=== PATIENT | female | born 1995 | race Caucasian/White ===

== ENCOUNTER 2020-05-13 04:10 | Observation (INO) | payer BC, OTHER ==
[2020-05-13 04:28] LABS: MUDS CUTOFF CONCENTRATIONS CUTOFF CONC BELOW:
[2020-05-13 04:30] LABS: GLUCOSE, URINE (UA) NEGATIVE (NEGATIVE); KETONES,URINE (UA) >=80 mg/dL (NEGATIVE); LEUKOCYTE ESTERASE, URINE NEGATIVE (NEGATIVE); NITRITE,URINE NEGATIVE (NEGATIVE); OCCULT BLOOD,URINE NEGATIVE (NEGATIVE); PH,URINE 6.5 PH (5.0-7.5); PROTEIN,URINE 100 mg/dL (NEGATIVE); UROBILINOGEN,URINE 1 (NORMAL) E.U./dL (NORMAL)
[2020-05-13 04:32] LABS: BILIRUBIN,URINE NEGATIVE (NEGATIVE); CLARITY,URINE CLEAR (CLEAR); HCG UR QUAL NEGATIVE; ICTOTEST,URINE NEGATIVE
[2020-05-13 04:37] LABS: BACTERIA,URINE Few /HPF (None Seen); CASTS, URINE 3-5 Hyaline Casts /LPF; MUCUS,URINE Marked Strands; RBC,URINE 0-5 /HPF (0-5); SQUAMOUS EPITHELIAL CELL,UR MANY Squamous (<= Few)
[2020-05-13 04:40] LABS: AMPHETAMINE SCREEN,URINE NEGATIVE (NEGATIVE); BENZODIAZEPINES SCREEN, URINE NEGATIVE (NEGATIVE); COCAINE SCREEN URINE NEGATIVE (NEGATIVE); METHADONE SCREEN, URINE NEGATIVE (NEGATIVE); METHAMPHETAMINES SCREEN, URINE NEGATIVE (NEGATIVE); OPIATE SCREEN, URINE NEGATIVE (NEGATIVE); OXYCODONE SCREEN, URINE NEGATIVE (NEGATIVE); PROPOXYPHENE SCREEN, URINE NEGATIVE (NEGATIVE); TRICYCLIC ANTIDEPRESSANT,URINE NEGATIVE (NEGATIVE)
[2020-05-13] MEDS ORDERED: ONDANSETRON 4 MG/2 ML VIAL IVP STA ×2 (04:40→05:19)
[2020-05-13] MEDS ORDERED: SODIUM CHLORIDE 0.9% 1,000 ML IV STA (04:40)
[2020-05-13 04:49] LABS: BASOPHILS # (AUTO) 0.1 10^3/uL (0.0-0.1); BASOPHILS % (AUTO) 0.2 %; HGB - HEMOGLOBIN 14.7 g/dL (12.0-16.0); LYMPHOCYTES # (AUTO) 0.9 10^3/uL (1.5-3.5); LYMPHOCYTES % (AUTO) 4.4 %; MEAN CORPUSCULAR HEMOGLOBIN 29.6 pg (27.0-31.0); MEAN CORPUSCULAR HGB CONC 33.7 g/dL (32.0-36.0); MEAN CORPUSCULAR VOLUME 87.7 fL (81.0-99.0); MEAN PLATELET VOLUME 9.9 fL (7.9-10.8); MONOCYTES # (AUTO) 0.6 10^3/uL (0.0-1.0); MONOCYTES % (AUTO) 2.8 %; NEUTROPHILS # (AUTO) 19.4 10^3/uL (1.5-6.6); NEUTROPHILS % (AUTO) 92.2 %; PLT - PLATELET COUNT 379 10^3/uL (130-450); RED BLOOD COUNT 4.97 10^6/uL (4.20-5.40); RED CELL DISTRIBUTION WIDTH 12.2 % (12.0-15.0); WHITE BLOOD COUNT 21.1 x10^3/uL (4.8-10.8)
[2020-05-13 05:03] LABS: ALBUMIN 4.7 g/dL (3.2-5.5); ALBUMIN/GLOBULIN RATIO 1.6 (1.0-2.2); BILIRUBIN,TOTAL 1.5 mg/dL (0.2-1.0); CALCIUM 9.9 mg/dL (8.5-10.3); CREATININE 0.9 mg/dL (0.4-1.0); TOTAL PROTEIN 7.7 g/dL (6.7-8.2)
[2020-05-13] MEDS ORDERED: POTASSIUM CHLORIDE 20 MEQ IV STA (05:19)
[2020-05-13] MEDS ORDERED: MORPHINE 10 MG/ML VIAL IVP STA (05:21)
[2020-05-13] MEDS ORDERED: NS W/20 MEQ KCL 1,000 ML IV STA (05:21)
--- NOTE | 2020-05-13 05:33 | ED Physician Documentation ---
PD HPI ABD PAIN - Stated complaint Stated Complaint: ABD HX - Chief complaint Chief Complaint: Abd Pain - History obtained from History obtained from: Patient - Additional information Additional information: 25-year-old woman with No reported past medical history, not currently on medications, strong family history of diabetes, presents with gradual onset periumbilical abdominal pain radiating diffusely to the entire abdomen, constant, aching, starting a few hours prior to arrival and now a 10 out of 10, associated with nonbloody nonbilious nausea and vomiting. Patient states that she has been feeling confused and was concerned that someone had drugged her. She was reassured after Nursing told her that her urine drug screen was negative. She denies any recreational drug use or alcohol. Does endorse 10 pound weight loss over the past 2 weeks, anorexia, increased urination. Denies fevers, diarrhea, chest pain shortness of breath edema rash. Review of Systems Ten Systems: 10 systems reviewed and negative Constitutional: reports: Myalgias, Fatigue, Weight Loss. denies: Fever, Chills Respiratory: reports: Dyspnea GI: reports: Abdominal Pain, Nausea, Vomiting. denies: Diarrhea : reports: Frequency. 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 : None HEENT: None Psych: Anxiety Musculoskeletal: None Derm: Eczema - Past Surgical History Past Surgical History: No - Present Medications Home Medications: Ambulatory Orders Medication Instructions Recorded Confirmed No Known Home Medications 05/13/20 05/13/20 - Allergies Allergies/Adverse Reactions: Allergies Allergy/AdvReac Type Severity Reaction Status Date / Time No Known Drug Allergies Allergy Verified 05/13/20 04:20 - Social History Does the pt smoke?: No Smoking Status: Never smoker Does the pt drink ETOH?: Yes Does the pt have substance abuse?: No - POLST Patient has POLST: No PD ED PE NORMAL - Vitals Vital signs reviewed: Yes - General General: Alert and oriented X 3, No acute distress, Other (Anxious appearing, thin.) - HEENT HEENT: Atraumatic, PERRL, EOMI, Pharynx benign, Other (Dry mucous membranes) - Neck Neck: Supple, no meningeal sign - Cardiac Cardiac: RRR - Respiratory Respiratory: No respiratory distress, Clear bilaterally - Abdomen Abdomen: Other (Diffusely tender to palpation) - Female Female : Deferred - Rectal Rectal: Deferred - Back Back: No CVA TTP - Derm Derm: Normal color - Extremities Extremities: No deformity - Neuro Neuro: Alert and oriented X 3 - Psych Psych: Other (Anxious mood and affect.) Results - Vitals Vitals: Vital Signs - 24 hr 05/13/20 05/13/20 04:18 05:00 Temperature 36.2 C L Heart Rate 67 76 Respiratory 16 18 Rate Blood Pressure 102/63 112/72 O2 Saturation 99 100 Oxygen O2 Source Room air - Labs Labs: Laboratory Tests 05/13/20 05/13/20 05/13/20 04:18 04:35 04:35 WBC 21.1 H RBC 4.97 Hgb 14.7 Hct 43.6 MCV 87.7 MCH 29.6 MCHC 33.7 RDW 12.2 Plt Count 379 MPV 9.9 Neut # (Auto) 19.4 H Lymph # (Auto) 0.9 L [place] # (Auto) 0.6 Eos # (Auto) 0.0 Baso # (Auto) 0.1 Absolute Nucleated RBC 0.00 Nucleated RBC % 0.0 VBG pH VBG pCO2 VBG pO2 VBG HCO3 VBG Total CO2 VBG O2 Saturation VBG Base Excess Sodium 138 Potassium 3.7 Chloride 96 L Carbon Dioxide 19 L Anion Gap 23.0 H BUN 7 Creatinine 0.9 Estimated GFR (MDRD) 75 L Glucose 222 H Lactic Acid Calcium 9.9 Total Bilirubin 1.5 H AST 19 ALT 16 Alkaline Phosphatase 36 L Total Protein 7.7 Albumin 4.7 Globulin 3.0 Albumin/Globulin Ratio 1.6 Lipase 24 Urine Color DARK YELLOW Urine Clarity CLEAR Urine pH 6.5 Ur Specific [place] >=1.030 H Urine Protein 100 H Urine Glucose (UA) NEGATIVE Urine Ketones >=80 H Urine Occult Blood NEGATIVE Urine Nitrite NEGATIVE Urine Bilirubin NEGATIVE Urine Urobilinogen 1 (NORMAL) Ur Leukocyte Esterase NEGATIVE Urine RBC 0-5 Urine WBC 0-3 Ur Squamous Epith Cells MANY Squamous H Urine Bacteria Few Urine Casts 3-5 Hyaline Casts Urine Mucus Marked Strands Ur Microscopic Review INDICATED Urine Culture Comments NOT INDICATED Urine HCG, Qual NEGATIVE Nasal Adenovirus (PCR) Nasal B. parapertussis DNA (PCR) Nasal Coronavir 229E PCR Nasal Coronavir HKU1 PCR Nasal Coronavir NL63 PCR Nasal Coronavir OC43 PCR Nasal Enterovir/Rhinovir PCR Nasal Influenza B PCR Nasal Influenza A PCR Nasal Parainfluen 1 PCR Nasal Parainfluen 2 PCR Nasal Parainfluen 3 PCR Nasal Parainfluen 4 PCR Nasal RSV (PCR) Nasal B.pertussis DNA PCR Nasal C.pneumoniae (PCR) [place] Metapneumo PCR Nasal M.pneumoniae (PCR) Nasal SARS-CoV-2 (PCR) Salicylates Urine Opiates Screen NEGATIVE Ur Oxycodone Screen NEGATIVE Urine Methadone Screen NEGATIVE Ur Propoxyphene Screen NEGATIVE Acetaminophen Ur Barbiturates Screen NEGATIVE Ur Tricyclics Screen NEGATIVE Ur Phencyclidine Scrn NEGATIVE Ur Amphetamine Screen NEGATIVE U Methamphetamines Scrn NEGATIVE U Benzodiazepines Scrn NEGATIVE Urine Cocaine Screen NEGATIVE U Cannabinoids Screen NEGATIVE Ethyl Alcohol Serum Ketones 05/13/20 05/13/20 05/13/20 04:35 04:35 05:25 WBC RBC Hgb Hct MCV MCH MCHC RDW Plt Count MPV Neut # (Auto) Lymph # (Auto) [place] # (Auto) Eos # (Auto) Baso # (Auto) Absolute Nucleated RBC Nucleated RBC % VBG pH 7.459 H VBG pCO2 27.9 L VBG pO2 26.8 VBG HCO3 19.4 L VBG Total CO2 20.2 L VBG O2 Saturation 60.2 VBG Base Excess -3.0 L Sodium Potassium Chloride Carbon Dioxide Anion Gap BUN Creatinine Estimated GFR (MDRD) Glucose Lactic Acid Calcium Total Bilirubin AST ALT Alkaline Phosphatase Total Protein Albumin Globulin Albumin/Globulin Ratio Lipase Urine Color Urine Clarity Urine pH Ur Specific [place] Urine Protein Urine Glucose (UA) Urine Ketones Urine Occult Blood Urine Nitrite Urine Bilirubin Urine Urobilinogen Ur Leukocyte Esterase Urine RBC Urine WBC Ur Squamous Epith Cells Urine Bacteria Urine Casts Urine Mucus Ur Microscopic Review Urine Culture Comments Urine HCG, Qual Nasal Adenovirus (PCR) Nasal B. parapertussis DNA (PCR) Nasal Coronavir 229E PCR Nasal Coronavir HKU1 PCR Nasal Coronavir NL63 PCR Nasal Coronavir OC43 PCR Nasal Enterovir/Rhinovir PCR Nasal Influenza B PCR Nasal Influenza A PCR Nasal Parainfluen 1 PCR Nasal Parainfluen 2 PCR Nasal Parainfluen 3 PCR Nasal Parainfluen 4 PCR Nasal RSV (PCR) Nasal B.pertussis DNA PCR Nasal C.pneumoniae (PCR) [place] Metapneumo PCR Nasal M.pneumoniae (PCR) Nasal SARS-CoV-2 (PCR) Salicylates < 6.0 Urine Opiates Screen Ur Oxycodone Screen Urine Methadone Screen Ur Propoxyphene Screen Acetaminophen < 10 L Ur Barbiturates Screen Ur Tricyclics Screen Ur Phencyclidine Scrn Ur Amphetamine Screen U Methamphetamines Scrn U Benzodiazepines Scrn Urine Cocaine Screen U Cannabinoids Screen Ethyl Alcohol < 5.0 Serum Ketones SMALL H 05/13/20 05/13/20 05:31 06:26 WBC RBC Hgb Hct MCV MCH MCHC RDW Plt Count MPV Neut # (Auto) Lymph # (Auto) [place] # (Auto) Eos # (Auto) Baso # (Auto) Absolute Nucleated RBC Nucleated RBC % VBG pH VBG pCO2 VBG pO2 VBG HCO3 VBG Total CO2 VBG O2 Saturation VBG Base Excess Sodium Potassium Chloride Carbon Dioxide Anion Gap BUN Creatinine Estimated GFR (MDRD) Glucose Lactic Acid 2.3 H Calcium Total Bilirubin AST ALT Alkaline Phosphatase Total Protein Albumin Globulin Albumin/Globulin Ratio Lipase Urine Color Urine Clarity Urine pH Ur Specific [place] Urine Protein Urine Glucose (UA) Urine Ketones Urine Occult Blood Urine Nitrite Urine Bilirubin Urine Urobilinogen Ur Leukocyte Esterase Urine RBC Urine WBC Ur Squamous Epith Cells Urine Bacteria Urine Casts Urine Mucus Ur Microscopic Review Urine Culture Comments Urine HCG, Qual Nasal Adenovirus (PCR) NOT DETECTED Nasal B. parapertussis DNA (PCR) NOT DETECTED Nasal Coronavir 229E PCR NOT DETECTED Nasal Coronavir HKU1 PCR NOT DETECTED Nasal Coronavir NL63 PCR NOT DETECTED Nasal Coronavir OC43 PCR NOT DETECTED Nasal Enterovir/Rhinovir PCR NOT DETECTED Nasal Influenza B PCR NOT DETECTED Nasal Influenza A PCR NOT DETECTED Nasal Parainfluen 1 PCR NOT DETECTED Nasal Parainfluen 2 PCR NOT DETECTED Nasal Parainfluen 3 PCR NOT DETECTED Nasal Parainfluen 4 PCR NOT DETECTED Nasal RSV (PCR) NOT DETECTED Nasal B.pertussis DNA PCR NOT DETECTED Nasal C.pneumoniae (PCR) NOT DETECTED [place] Metapneumo PCR NOT DETECTED Nasal M.pneumoniae (PCR) NOT DETECTED Nasal SARS-CoV-2 (PCR) NOT DETECTED Salicylates Urine Opiates Screen Ur Oxycodone Screen Urine Methadone Screen Ur Propoxyphene Screen Acetaminophen Ur Barbiturates Screen Ur Tricyclics Screen Ur Phencyclidine Scrn Ur Amphetamine Screen U Methamphetamines Scrn U Benzodiazepines Scrn Urine Cocaine Screen U Cannabinoids Screen Ethyl Alcohol Serum Ketones PD MEDICAL DECISION MAKING - ED course ED course: d/w patient's mother Anette ([phone]) who states patient has no prior mental health history but has been acting depressed the past week or so and "has been fasting". She is concerned this is the cause of her daughter's symptoms. Patient feeling better. endorsed to Dr. Shearer for further management. d/w Dr. Sullivan, night time hospitalist who states she will likely be placed in observation. patient amenable to stay. Departure - Departure Clinical Impression: Nausea and vomiting, Hyperglycemia, Polyuria, Polydipsia
[2020-05-13] MEDS ORDERED: IOVERSOL 320 100 ML VIAL IVP ONE ×2 (05:34→06:29)
[2020-05-13 05:41] LABS: VBG PCO2 27.9 mmHg (41-51); VBG PH 7.459 (7.31-7.41); VBG PO2 26.8 mmHg (25-47); VBG TOTAL CO2 20.2 mmol/L (24-29)
[2020-05-13 06:11] LABS: ACETAMINOPHEN < 10 ug/mL (10-30); SALICYLATE < 6.0 mg/dL
[2020-05-13 06:26] LABS: C. PNEUMONIAE- RESP PCR PANEL NOT DETECTED
--- NOTE | 2020-05-13 07:15 | ED Physician Documentation ---
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 HEENT: None Psych: Anxiety Musculoskeletal: None Derm: Eczema - Past Surgical History Past Surgical History: No - Present Medications Home Medications: Ambulatory Orders Medication Instructions Recorded Confirmed No Known Home Medications 05/13/20 05/13/20 - Allergies Allergies/Adverse Reactions: Allergies Allergy/AdvReac Type Severity Reaction Status Date / Time No Known Drug Allergies Allergy Verified 05/13/20 04:20 - Social History Does the pt smoke?: No Smoking Status: Never smoker Does the pt drink ETOH?: Yes Does the pt have substance abuse?: No - POLST Patient has POLST: No Results - Vitals Vitals: Vital Signs - 24 hr 05/13/20 05/13/20 04:18 05:00 Temperature 36.2 C L Heart Rate 67 76 Respiratory 16 18 Rate Blood Pressure 102/63 112/72 O2 Saturation 99 100 Oxygen O2 Source Room air - Labs Labs: Laboratory Tests 05/13/20 05/13/20 05/13/20 04:18 04:35 04:35 WBC 21.1 H RBC 4.97 Hgb 14.7 Hct 43.6 MCV 87.7 MCH 29.6 MCHC 33.7 RDW 12.2 Plt Count 379 MPV 9.9 Neut # (Auto) 19.4 H Lymph # (Auto) 0.[address] [place] # (Auto) 0.6 Eos # (Auto) 0.0 Baso # (Auto) 0.1 Absolute Nucleated RBC 0.00 Nucleated RBC % 0.0 VBG pH VBG pCO2 VBG pO2 VBG HCO3 VBG Total CO2 VBG O2 Saturation VBG Base Excess Sodium 138 Potassium 3.7 Chloride 96 L Carbon Dioxide 19 L Anion Gap 23.0 H BUN 7 Creatinine 0.9 Estimated GFR (MDRD) 75 L Glucose 222 H Lactic Acid Calcium 9.9 Total Bilirubin 1.5 H AST 19 ALT 16 Alkaline Phosphatase 36 L Total Protein 7.7 Albumin 4.7 Globulin 3.0 Albumin/Globulin Ratio 1.6 Lipase 24 Urine Color DARK YELLOW Urine Clarity CLEAR Urine pH 6.5 Ur Specific [place] >=1.030 H Urine Protein 100 H Urine Glucose (UA) NEGATIVE Urine Ketones >=80 H Urine Occult Blood NEGATIVE Urine Nitrite NEGATIVE Urine Bilirubin NEGATIVE Urine Urobilinogen 1 (NORMAL) Ur Leukocyte Esterase NEGATIVE Urine RBC 0-5 Urine WBC 0-3 Ur Squamous Epith Cells MANY Squamous H Urine Bacteria Few Urine Casts 3-5 Hyaline Casts Urine Mucus Marked Strands Ur Microscopic Review INDICATED Urine Culture Comments NOT INDICATED Urine HCG, Qual NEGATIVE Nasal Adenovirus (PCR) Nasal B. parapertussis DNA (PCR) Nasal Coronavir 229E PCR Nasal Coronavir HKU1 PCR Nasal Coronavir NL63 PCR Nasal Coronavir OC43 PCR Nasal Enterovir/Rhinovir PCR Nasal Influenza B PCR Nasal Influenza A PCR Nasal Parainfluen 1 PCR Nasal Parainfluen 2 PCR Nasal Parainfluen 3 PCR Nasal Parainfluen 4 PCR Nasal RSV (PCR) Nasal B.pertussis DNA PCR Nasal C.pneumoniae (PCR) [place] Metapneumo PCR Nasal M.pneumoniae (PCR) Nasal SARS-CoV-2 (PCR) Salicylates Urine Opiates Screen NEGATIVE Ur Oxycodone Screen NEGATIVE Urine Methadone Screen NEGATIVE Ur Propoxyphene Screen NEGATIVE Acetaminophen Ur Barbiturates Screen NEGATIVE Ur Tricyclics Screen NEGATIVE Ur Phencyclidine Scrn NEGATIVE Ur Amphetamine Screen NEGATIVE U Methamphetamines Scrn NEGATIVE U Benzodiazepines Scrn NEGATIVE Urine Cocaine Screen NEGATIVE U Cannabinoids Screen NEGATIVE Ethyl Alcohol Serum Ketones 05/13/20 05/13/20 05/13/20 04:35 04:35 05:25 WBC RBC Hgb Hct MCV MCH MCHC RDW Plt Count MPV Neut # (Auto) Lymph # (Auto) [place] # (Auto) Eos # (Auto) Baso # (Auto) Absolute Nucleated RBC Nucleated RBC % VBG pH 7.459 H VBG pCO2 27.9 L VBG pO2 26.8 VBG HCO3 19.4 L VBG Total CO2 20.2 L VBG O2 Saturation 60.2 VBG Base Excess -3.0 L Sodium Potassium Chloride Carbon Dioxide Anion Gap BUN Creatinine Estimated GFR (MDRD) Glucose Lactic Acid Calcium Total Bilirubin AST ALT Alkaline Phosphatase Total Protein Albumin Globulin Albumin/Globulin Ratio Lipase Urine Color Urine Clarity Urine pH Ur Specific [place] Urine Protein Urine Glucose (UA) Urine Ketones Urine Occult Blood Urine Nitrite Urine Bilirubin Urine Urobilinogen Ur Leukocyte Esterase Urine RBC Urine WBC Ur Squamous Epith Cells Urine Bacteria Urine Casts Urine Mucus Ur Microscopic Review Urine Culture Comments Urine HCG, Qual Nasal Adenovirus (PCR) Nasal B. parapertussis DNA (PCR) Nasal Coronavir 229E PCR Nasal Coronavir HKU1 PCR Nasal Coronavir NL63 PCR Nasal Coronavir OC43 PCR Nasal Enterovir/Rhinovir PCR Nasal Influenza B PCR Nasal Influenza A PCR Nasal Parainfluen 1 PCR Nasal Parainfluen 2 PCR Nasal Parainfluen 3 PCR Nasal Parainfluen 4 PCR Nasal RSV (PCR) Nasal B.pertussis DNA PCR Nasal C.pneumoniae (PCR) [place] Metapneumo PCR Nasal M.pneumoniae (PCR) Nasal SARS-CoV-2 (PCR) Salicylates < 6.0 Urine Opiates Screen Ur Oxycodone Screen Urine Methadone Screen Ur Propoxyphene Screen Acetaminophen < 10 L Ur Barbiturates Screen Ur Tricyclics Screen Ur Phencyclidine Scrn Ur Amphetamine Screen U Methamphetamines Scrn U Benzodiazepines Scrn Urine Cocaine Screen U Cannabinoids Screen Ethyl Alcohol < 5.0 Serum Ketones SMALL H 05/13/20 05/13/20 05:31 06:26 WBC RBC Hgb Hct MCV MCH MCHC RDW Plt Count MPV Neut # (Auto) Lymph # (Auto) [place] # (Auto) Eos # (Auto) Baso # (Auto) Absolute Nucleated RBC Nucleated RBC % VBG pH VBG pCO2 VBG pO2 VBG HCO3 VBG Total CO2 VBG O2 Saturation VBG Base Excess Sodium Potassium Chloride Carbon Dioxide Anion Gap BUN Creatinine Estimated GFR (MDRD) Glucose Lactic Acid 2.3 H Calcium Total Bilirubin AST ALT Alkaline Phosphatase Total Protein Albumin Globulin Albumin/Globulin Ratio Lipase Urine Color Urine Clarity Urine pH Ur Specific [place] Urine Protein Urine Glucose (UA) Urine Ketones Urine Occult Blood Urine Nitrite Urine Bilirubin Urine Urobilinogen Ur Leukocyte Esterase Urine RBC Urine WBC Ur Squamous Epith Cells Urine Bacteria Urine Casts Urine Mucus Ur Microscopic Review Urine Culture Comments Urine HCG, Qual Nasal Adenovirus (PCR) NOT DETECTED Nasal B. parapertussis DNA (PCR) NOT DETECTED Nasal Coronavir 229E PCR NOT DETECTED Nasal Coronavir HKU1 PCR NOT DETECTED Nasal Coronavir NL63 PCR NOT DETECTED Nasal Coronavir OC43 PCR NOT DETECTED Nasal Enterovir/Rhinovir PCR NOT DETECTED Nasal Influenza B PCR NOT DETECTED Nasal Influenza A PCR NOT DETECTED Nasal Parainfluen 1 PCR NOT DETECTED Nasal Parainfluen 2 PCR NOT DETECTED Nasal Parainfluen 3 PCR NOT DETECTED Nasal Parainfluen 4 PCR NOT DETECTED Nasal RSV (PCR) NOT DETECTED Nasal B.pertussis DNA PCR NOT DETECTED Nasal C.pneumoniae (PCR) NOT DETECTED [place] Metapneumo PCR NOT DETECTED Nasal M.pneumoniae (PCR) NOT DETECTED Nasal SARS-CoV-2 (PCR) NOT DETECTED Salicylates Urine Opiates Screen Ur Oxycodone Screen Urine Methadone Screen Ur Propoxyphene Screen Acetaminophen Ur Barbiturates Screen Ur Tricyclics Screen Ur Phencyclidine Scrn Ur Amphetamine Screen U Methamphetamines Scrn U Benzodiazepines Scrn Urine Cocaine Screen U Cannabinoids Screen Ethyl Alcohol Serum Ketones PD MEDICAL DECISION MAKING - ED course Complexity details: reviewed results, re-evaluated patient, considered differential, d/w patient, d/w speech correction consultant ED course: 25-year-old female signed out to me by the previous physician. CT scan is without any significant acute abnormalities. Does have a hydropic gallbladder, but no physical or clinical signs of cholecystitis. Given IV fluids. Appears significantly dehydrated. Will place in observation for further care. Discussed with the hospitalist. This document was made in part using voice recognition software. While efforts are made to proofread this document, sound alike and grammatical errors may occur. Departure - Departure Disposition: ED Place in Observation Clinical Impression: Ketosis, Dehydration, Hyperglycemia Vomiting Qualifiers: Vomiting type: unspecified Vomiting Intractability: non-intractable Nausea presence: with nausea Qualified Code(s): R11.2 - Nausea with vomiting, unspecified Condition: Stable
[2020-05-13] MEDS ORDERED: SODIUM CHLORIDE FLUSH 0.9% 10 ML SYRINGE IVP PRN (07:28)
--- NOTE | 2020-05-13 07:40 | CT Report ---
PROCEDURE: HEAD WO INDICATIONS: ams TECHNIQUE: Noncontrast 4.5 mm thick angled axial sections acquired from the foramen magnum to the vertex. For r adiation dose reduction, the following was used: automated exposure control, adjustment of mA and/or kV according to patient size. COMPARISON: None. FINDINGS: Image quality: The vertex of the skull was not included in the [id number]. CSF spaces: Basal cisterns are patent. No extra-axial fluid collections. Ventricles are normal in size and shape. Brain: No midline shift. No intracranial masses or hemorrhage. Sloan-white matter interface is norm al. Skull and face: Calvarium and visualized facial bones are intact, without suspicious lesions. Sinuses: Visualized sinuses and mastoids are clear. IMPRESSION: No acute intracranial abnormality. Agree with preliminary report. Reviewed by: James Temple DO on 05/13/2020 6:39 AM [facility] Approved by: James Temple DO on 05/13/2020 6:39 AM [facility] Station ID: [id number]
--- NOTE | 2020-05-13 07:49 | CT Report ---
PROCEDURE: Abdomen/Pelvis W INDICATIONS: RLQ pain CONTRAST: IV CONTRAST: Optiray 320 ml: 100 PO CONTRAST: *NO PO CONTRAST TECHNIQUE: After the administration of nonionic contrast, 5 mm thick sections acquired from the diaphragms to th e symphysis. 5 mm thick coronal and sagittal reformats were acquired. For radiation dose reduction, the following was used: automated exposure control, adjustment of mA and/or kV according to patient size. COMPARISON: None. FINDINGS: Image quality: Excellent. ABDOMEN: Lung bases: Lung bases are clear. Heart size is normal. Solid organs: The liver demonstrates mild periportal edema. Geographic region of hypodensity adjacent to the falciform ligament likely represents focal fatty infiltration. The spleen demonstrates a subc entimeter hypodensity likely representing a small cyst. The gallbladder measures slightly greater chris n 10 cm in length. Biliary system is non dilated. Pancreas enhances normally. No adrenal nodules. Kidneys demonstrate normal size and enhancement, without hydronephrosis. Peritoneum and bowel: Bowel loops demonstrate normal wall thickness and caliber. No free fluid or a ir. Normal appendix. Nodes and vessels: No retroperitoneal or mesenteric adenopathy by size criteria. Aorta and inferior vena cava are normal in size. Miscellaneous: No ventral hernias. PELVIS: Genitourinary: Bladder wall thickness is normal. Unremarkable uterus and ovaries for patient's age. Miscellaneous: No inguinal hernias or adenopathy. Bones: No suspicious bony lesions. No vertebral body compression fractures. IMPRESSION: Hydropic gallbladder. Mild periportal edema which is nonspecific and may be seen in the setting of rapid hydration. This ho wever may suggest inflammatory or infectious process in the correct clinical setting. Recommend clini kalyani correlation. No significant discrepancy from preliminary report. Reviewed by: James Temple DO on 05/13/2020 6:48 AM [facility] Approved by: James Temple DO on 05/13/2020 6:48 AM [facility] Station ID: [id number]
[2020-05-13] MEDS: SODIUM CHLORIDE 0.9% 1,000 ML IV SCH ×3 (09:38→22:44)
[2020-05-13] MEDS: ENOXAPARIN 40 MG/0.4 ML SYRINGE SUBQ SCH (09:38)
[2020-05-13] MEDS: SODIUM CHLORIDE FLUSH 0.9% 10 ML SYRINGE IVP SCH ×2 (09:41→16:25)
[2020-05-13] MEDS: ONDANSETRON 4 MG/2 ML VIAL IVP PRN ×2 (10:01→16:25)
--- NOTE | 2020-05-13 11:06 | HISTORY & PHYSICAL EXAMINATION ---
Chief Complaint - Chief Complaint Chief Complaint: abdominal pain, n/v History of Present Illness - Admitted From Admitted From:: home - History Obtained From Records Reviewed: no records in [facility] History obtained from: patient Exam Limitations: Pt is a vague and poor historian, not allowing info to come to or from mom - History of Present Illness HPI Comment/Other: 25 year old female with no previous medical history and not on any current medications presented to the ED with abdominal pain, n/v, polydipsia and polyu yair. Per the ED note the pain was 10/10 with gradual onset and radiating diffuselty to the entire abdomen, aching. On my exam she denies radiation, rates it as 8/10 and describes as sharp. Minimizing movement and sleeping help to make it better and stress and movement make it worse. She notes that she "has not slept in over a week" due to a "traumatizing event" but was unwilling to elaborate. She is a vague historian and difficult to elicit details from. She is reporting n/v with nonbilious nonbloody emesis and associated poor appetite and intake. Unable to state what she has been eating recently other than 2 bananas yesterday that she immediately threw up. Reports that her diet over the last 6 months has "not been good" but unable to describe. Denies anorexia, weight loss and deliberately not eating, though ED note indicates Pt reported a 10 pound weight loss over the past 2 weeks and mother reported Pt has been fasting recently. She reported a 1 week history of polydipsia and polyuria, dizziness and possible changes in taste (she is covid negative). She is unsure of family hx of diabetes other than her mother is "prediabetic" and her uncle "may have" diabetes. ED note indicates strong family history of diabetes. On admission her glucose is 222, WBC 21.1, ketones in the urine, and she was found to have a metabolic acidosis thought 2/2 hyperventilation due to anxiety. Regarding her diet, she alternately reports a weight loss (10 pounds reported to the ED) and denying a weight loss. She also reports she is not sure for how long but she "frequently" fasts, "maybe for 2 or 3 days and this time just might have been too long." Believes she may be drank "too much sugar water, but not on purpose" at her parents' house. "It tasted weird." Reports history of suicidal ideation with no suicide attempts. When asked if she is feeling safe, she reports "I don't know". When asked if she feels like she should hurt herself or others she reports "maybe". Unwilling to elaborate. Reported to nursing a past history of attempts to hurt herself, but was unwilling to elaborate during my interview. Denies having a plan. Has not been diagnosed with depression, anxiety or psychiatric illness but self-reports anxiety and "possible" depression. Per ED note Pt's mother reported Pt had been acting depressed over the last week. On further examination, Pt's affect is labile and alternates between flat, happy, and paranoid. Alternating between making eye contact and wandering gaze around the room in a paranoid fashion. She reports believing that "something is happening" at her parents' house but unable to describe,also mentioned she believes she is being poisoned by her mom. Believes she was "hypnotized" by friends a year and a half ago and this may be why she has not slept in a week, but then states she does not think she was really hypnotized. Stated that her "brain feels like part of it is gone" and "I wish you had scanned my brain before all of this happened", also that "my memories just feel hollow, does that make sense?" Also asking "do you believe me?" when describing these feelings. Describes trying to "work out sentences in my head to help my friend" but then states that her memory issues have caused her to forget what she was going to say to her friend. She is being admitted for observation for concern of euglycemic diabetic ket oacidosis vs starvation ketosis vs unspecified hyperglycemia. She will additionally need a telepsych consult for her schizoaffective signs. History - Past Medical History Cardiovascular: reports: None Respiratory: reports: None Neuro: reports: None Endocrine/Autoimmune: reports: None GI: reports: None GRIP: reports: None : reports: None HEENT: reports: None Psych: reports: Anxiety Musculoskeletal: reports: None Derm: reports: Eczema MRSA Hx?: No - Family & Social History Family History Comment/Other: Pt vague with this history, believes mother is "prediabetic" and mother's brother is diabetic. Living arrangement: At home Living Situation: With family Social History Notes: Has been living with her parents for 9 months, is not currently working. Never smoker. Past remote hx of using cocaine, unable to state how much or when. Denies use of meth or heroin. Past hx of marijuana, unable to state when last used or quantify. Past hx of alcohol use, last drink 3 months ago, again unable to quantify how much she was drinking. Reveals her diet has been "off" for the last 6 months, frequently not eating but denies anorexia. SW notes indicate mother reported patient was fasting frequently. - POLST Patient has POLST: No Meds/Allgy - Home Medications Home Medications: Ambulatory Orders Medication Instructions Recorded Confirmed No Known Home Medications 05/13/20 05/13/20 - Allergies Allergies/Adverse Reactions: Allergies Allergy/AdvReac Type Severity Reaction Status Date / Time No Known Drug Allergies Allergy Verified 05/13/20 04:20 Review of Systems - Constitutional Constitutional: reports: Poor appetite - Eyes Eyes: denies: Pain, Blurred vision, Vision loss - Ears, Nose & Throat Ears, Nose & Throat: denies: Ear pain, Nasal discharge, Sore throat, Hoarseness - Cardiovascular Cariovascular: reports: Lightheadedness. denies: Irregular heart rate, Palpitations, Chest pain, Edema, Syncope, Exertional dyspnea - Respiratory Respiratory: denies: Cough, Wheezing, Hemoptysis, SOB at rest, SOB with exertion - Gastrointestinal Gastrointestinal: reports: Abdominal pain, Constipation (last BM 2 days ago, and last prior to that was 1 week prior), Nausea, Vomiting, Poor appetite. denies: Abdominal distention, Diarrhea, Bloody stools, Bile emesis, [place] blood emesis, Coffee grounds emesis, Reflux/heartburn - Genitourinary Genitourinary: denies: Dysuria, Frequency, Incontinence, Flank pain, Nocturia - Musculoskeletal Musculoskeletal: denies: Muscle pain, Back pain, Muscle aches, Stiffness, Limited range of motion - Integumentary Integumentary: denies: Rash, Lesions - Neurological Neurological: reports: Dizziness. denies: General weakness - Psychiatric Psychiatric: reports: Depression ("maybe"), Anxiety, Suicidal ("maybe" feels like she should hurt herself, does not have a plan; hx of hurting herself per her report to nursing) - Endocrine Endocrine: reports: Polyuria, Polydypsia. denies: Polyphagia - Hematologic/Lymphatic Hematologic/Lymphatic: denies: Anemia, Bruising - All Other Systems All Other Systems: reports: Reviewed and negative Prior Level of Functionality: independent with ADLs, driving, does not use DME Exam - Vital Signs Reviewed Vital Signs: Yes Vital Signs: Vital Signs x48h Temp Pulse Pulse Resp BP BP Pulse Ox 05/13/20 09:35 37.9 C 73 16 117/74 100 05/13/20 07:00 79 18 112/73 99 05/13/20 05:00 76 18 112/72 100 05/13/20 04:18 36.2 C L 67 16 102/63 99 - Physical Exam General Appearance: positive: Alert, Mild distress Eyes Bilateral: positive: Normal inspection, PERRL, EOMI, No lid inflammation, Conjunctivae nml, No scleral icterus ENT: positive: ENT inspection nml, Dry mucous membranes Neck: positive: Nml inspection Respiratory: positive: Chest non-tender, No respiratory distress, Breath sounds nml Cardiovascular: positive: Regular rate & rhythm, No murmur, No gallop Peripheral Pulses: positive: 2+ Abdomen: positive: No organomegaly, Nml bowel sounds, Tenderness (to light and deep palpation, R>L). negative: Guarding, Rebound, Hepatomegaly, Splenomegaly Skin: positive: Pallor, Other (facial scabs scattered on cheek and forehead) Extremities: positive: Non-tender, Full ROM, Nml appearance, No pedal edema Neurologic/Psychiatric: positive: Oriented x3, Other (affect quickly transitions from flat to paranoid to happy, labile; delusional and paranoid) Sepsis Event Note (H) - Evaluation Current Stage of Sepsis: Ruled out Conclusion/Plan - Problem List (1) Abdominal pain Conclusion/Plan: Reporting generalized sharp abdominal pain, described as aching in the ED. 8/10, diffuse but non radiating. Movement and stress make it worse, not moving and sleep make it better. Her abdomen is slightly firm but not distended. No organomegaly. She reports her last BM was 2 days ago (she "thinks"), and the BM prior that was a week prior. She could not describe the stool. She is unsure why she is constipated. She has been fasting for unclear reasons and unclear lengths of time, per her report "maybe 2-3 days" and per report to ED possibly as long as 10 days. She is not malnourished as her albumin is >4. She is not diabetic as her A1C is 4.9. She denies food poisoning as she has not eaten much recently. Her CT abdomen and pelvis is negative for all but a hydropic gallbladder and she is not having signs of cholecystitis other than pain to palpation and elevated WBC 21. Lipase is normal and pancreas was normal on CT so this is not pancreatitis. She is admitted for further observation and closer monitoring of the pain and n/v. 1. Monitor pain 2. CMP/CBC 3. CT scan (revealed hydropic gallbladder) Qualifiers: Abdominal location: generalized Qualified Code(s): R10.84 - Generalized abdominal pain (2) Nausea and vomiting Conclusion/Plan: Reports n/v of unclear duration but believes it started 2 days ago. Reports emesis after eating 2 bananas, "undigested food". No bloody emesis. The nausea comes and goes but is not intractable and does respond to PRN antiemetics. Her BUN and creatinine are normal but mucus membranes are dry and she is likely dehydrated from the n/v. 1. PRN antiemetics 2. IVF 3. Encourage oral intake Qualifiers: Vomiting type: unspecified Vomiting Intractability: non-intractable Qualified Code(s): R11.2 - Nausea with vomiting, unspecified (3) Hyperglycemia Conclusion/Plan: BG on admission was 222 and there are ketones in her urine. She was given IVF but no insulin,and on recheck after 6 hours her BG was 106. A1C is 4.9. She has a family history of diabetes and has been complaining of n/v, abdominal pain, polyuria and polydipsia. Her mother reports she has been fasting and not eating this week, though Pt reports she ate 2 bananas yesterday and threw them up. She does reports she believes she drank "sugar water" at home because the water tasted "weird". Given the ketones and reports of prolonged fasting, this may be starvation ketosis. (4) Ketosis Conclusion/Plan: Found to have >80 ketones in her urine. Reports intermittent fasting at home, sometimes for 2-3 days but may have been fasting for much longer this last week. She denies intentionally trying to lose weight or change her diet and albumin is >4 so she is not malnourished. Differential at admission included starvation ketosis and euglycemic diabetic ketoacidosis, both of which are rare, however euglycemic DKA was ruled out with her normal A1C. 1. Monitor I/Os 2. IVF 3. CMP, replace electrolytes as needed (5) Polydipsia Conclusion/Plan: Reports polydipsia at home. A1C drawn in context of also having polyuria and hyperglycemia with ketones in the urine on admission, was normal at 4.9. (6) Polyuria Conclusion/Plan: ROS positive for polyuria. Hyperglycemia noted on admission labs, Hgb A1C 4.9- she does not have diabetes. 1. Monitor I/O (7) Dehydration Conclusion/Plan: Related to n/v. Reported not recently drinking or eating, but also reported polydipsia and drinking water that didn't taste right at her parents. BUN and creatinine are appropriate but she appeared to have dry mucus membranes. IVF infusing and she is drinking coffee and juice in her room. 1. Daily CMP 2. Encourage oral intake (8) Schizoaffective disorder Conclusion/Plan: No prior mental health diagnosis. Has appeared to be paranoid with delusions during my interviews with her. Believes "part of my brain is gone", "I feel high" (tox screen negative and last reported substance use was months ago", her "memories are hollow", she has been "hypnotized", and her parents may have put sugar in her water to cause hyperglycemia because it didn't taste right. "Do you believe me? Maybe you don't have enough information." Alternates between making eye contact and then having her gaze wander around the room in paranoid fashion. Labile affect, will be appearing ready to cry then move to smiling to smirking to flat affect. Reports her friends asked if they could hypnotize her a year and a half ago and this may be why she is having difficulty. Also reports that she has not slept in a week. When asked why, she alludes to a "traumatizing" event that occurred at home but she is unable to elucidate and vaguely starts talking about being hypnotized. Reported to nursing a hx of attempting to hurt herself in the past, did not want to discuss with me. When asked if she is having thoughts of harming herself now, she says "maybe" but she denies having a plan. 1. Safety checks by nursing 2. Social Work consult 3. Telepsych consult Qualifiers: Schizoaffective disorder type: unspecified Qualified Code(s): F25.9 - Schizoaffective disorder, unspecified - Lab Results Lab results reviewed: Yes Fish Bones: 05/13/20 04:35 05/13/20 12:00 - Diagnostic Imaging Results Diagnostic Imaging Results: positive: Final report reviewed - EKG Results EKG Interpreted Independently: Yes Core Measures - Anticipated LOS I expect patient to be DC'd or transferred within 96 hours.: Yes - DVT/VTE - Prophylaxis VTE/DVT Device ordered at admit?: Yes
[2020-05-13 12:51] LABS: HEMOGLOBIN A1c% 4.9 % (4.27-6.07)
[2020-05-13 13:02] LABS: CALCIUM 8.9 mg/dL (8.5-10.3); CREATININE 0.6 mg/dL (0.4-1.0); MAGNESIUM 1.9 mg/dL (1.7-2.8)
[2020-05-13] MEDS: ACETAMINOPHEN 325 MG TABLET PO PRN (16:25)
[2020-05-14] MEDS: SODIUM CHLORIDE FLUSH 0.9% 10 ML SYRINGE IVP SCH ×3 (00:13→16:06)
[2020-05-14] MEDS: SODIUM CHLORIDE 0.9% 1,000 ML IV SCH ×3 (05:21→18:44)
[2020-05-14 05:42] LABS: BASOPHILS % (AUTO) 0.2 %; EOSINOPHILS % (AUTO) 0.3 %; HGB - HEMOGLOBIN 12.6 g/dL (12.0-16.0); LYMPHOCYTES # (AUTO) 1.7 10^3/uL (1.5-3.5); LYMPHOCYTES % (AUTO) 13.2 %; MEAN CORPUSCULAR HEMOGLOBIN 29.8 pg (27.0-31.0); MEAN CORPUSCULAR HGB CONC 33.5 g/dL (32.0-36.0); MEAN CORPUSCULAR VOLUME 88.9 fL (81.0-99.0); MEAN PLATELET VOLUME 9.6 fL (7.9-10.8); MONOCYTES # (AUTO) 1.3 10^3/uL (0.0-1.0); MONOCYTES % (AUTO) 9.7 %; NEUTROPHILS # (AUTO) 10.1 10^3/uL (1.5-6.6); NEUTROPHILS % (AUTO) 76.3 %; PLT - PLATELET COUNT 254 10^3/uL (130-450); RED BLOOD COUNT 4.23 10^6/uL (4.20-5.40); RED CELL DISTRIBUTION WIDTH 12.5 % (12.0-15.0); WHITE BLOOD COUNT 13.2 x10^3/uL (4.8-10.8)
[2020-05-14 05:55] LABS: BUN - BLOOD UREA NITROGEN < 5 mg/dL (6-20); CALCIUM 8.3 mg/dL (8.5-10.3); CARBON DIOXIDE - CO2 23 mmol/L (21-32); CHLORIDE 104 mmol/L (101-111); CREATININE 0.5 mg/dL (0.4-1.0); GLUCOSE 107 mg/dL (70-100); MAGNESIUM 1.8 mg/dL (1.7-2.8)
[2020-05-14] MEDS ORDERED: POTASSIUM CHLORIDE 20 MEQ TABLET PO ONE (07:15)
[2020-05-14] MEDS: POTASSIUM CHLOR 10 MEQ/100 ML 10 MEQ/100 ML BAG IV SCH ×4 (07:58→13:36)
[2020-05-14] MEDS: ENOXAPARIN 40 MG/0.4 ML SYRINGE SUBQ SCH (09:12)
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
--- NOTE | 2020-05-14 10:55 | PHARMACY PROGRESS NOTE ---
- Best Possible Medication History Admit Date and Time: 05/13/20 0728 Processed by: Pharmacy Medication History completed: Yes Patient Interview: Pt interview ONLY source (Interviewed by Briana 05/14, only medication clobetasol cream per pt.) As the person ultimately responsible for medication therapy, providers are able to order a medication from an existing home medication list in [facility] via the "Reconcile Routine" prior to Confirmation of that medication by operations support analyst. Such practice is discouraged except when the physician, in their clinical judgment, deems that a medical need exists for a medication without regard to previous use.
[2020-05-15] MEDS: SODIUM CHLORIDE FLUSH 0.9% 10 ML SYRINGE IVP SCH ×3 (00:30→09:51)
[2020-05-15 05:17] LABS: BASOPHILS % (AUTO) 0.3 %; EOSINOPHILS # (AUTO) 0.1 10^3/uL (0.0-0.7); EOSINOPHILS % (AUTO) 0.8 %; HGB - HEMOGLOBIN 13.3 g/dL (12.0-16.0); LYMPHOCYTES # (AUTO) 1.7 10^3/uL (1.5-3.5); LYMPHOCYTES % (AUTO) 12.7 %; MEAN CORPUSCULAR HEMOGLOBIN 29.8 pg (27.0-31.0); MEAN CORPUSCULAR HGB CONC 34.1 g/dL (32.0-36.0); MEAN CORPUSCULAR VOLUME 87.4 fL (81.0-99.0); MEAN PLATELET VOLUME 9.9 fL (7.9-10.8); MONOCYTES % (AUTO) 7.7 %; NEUTROPHILS # (AUTO) 10.5 10^3/uL (1.5-6.6); NEUTROPHILS % (AUTO) 78.2 %; PLT - PLATELET COUNT 257 10^3/uL (130-450); RED BLOOD COUNT 4.46 10^6/uL (4.20-5.40); RED CELL DISTRIBUTION WIDTH 12.4 % (12.0-15.0); WHITE BLOOD COUNT 13.4 x10^3/uL (4.8-10.8)
[2020-05-15 05:32] LABS: BUN - BLOOD UREA NITROGEN < 5 mg/dL (6-20); CALCIUM 8.5 mg/dL (8.5-10.3); CARBON DIOXIDE - CO2 26 mmol/L (21-32); CHLORIDE 102 mmol/L (101-111); CREATININE 0.4 mg/dL (0.4-1.0); GLUCOSE 107 mg/dL (70-100)
[2020-05-15] MEDS ORDERED: POTASSIUM CHLORIDE 20 MEQ TABLET PO ONE ×2 (06:57→20:45)
[2020-05-15] MEDS: ENOXAPARIN 40 MG/0.4 ML SYRINGE SUBQ SCH (08:02)
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
[2020-05-15] MEDS ORDERED: SODIUM CHLORIDE 0.9% 500 ML IV ONE (09:13)
[2020-05-15] MEDS: CHOLECALCIFEROL 25 MCG TABLET PO SCH (09:27)
[2020-05-15] MEDS: MULTIVITAMIN W/MINERALS TABLET PO SCH (09:28)
[2020-05-15] MEDS ORDERED: ALPRAZolam 0.25 MG TABLET PO ONE (12:54)
[2020-05-15] MEDS: SODIUM CHLORIDE 0.9% 1,000 ML IV SCH ×2 (13:42→20:36)
[2020-05-15 14:17] LABS: BILIRUBIN,URINE NEGATIVE (NEGATIVE); GLUCOSE, URINE (UA) NEGATIVE (NEGATIVE); KETONES,URINE (UA) TRACE mg/dL (NEGATIVE); LEUKOCYTE ESTERASE, URINE TRACE (NEGATIVE); NITRITE,URINE NEGATIVE (NEGATIVE); OCCULT BLOOD,URINE NEGATIVE (NEGATIVE); PH,URINE 6.5 PH (5.0-7.5); PROTEIN,URINE NEGATIVE (NEGATIVE); UROBILINOGEN,URINE 1 (NORMAL) E.U./dL (NORMAL)
[2020-05-15 14:19] LABS: CLARITY,URINE HAZY (CLEAR)
[2020-05-16] MEDS: SODIUM CHLORIDE FLUSH 0.9% 10 ML SYRINGE IVP SCH ×2 (03:30→12:10)
[2020-05-16 04:41] LABS: BASOPHILS % (AUTO) 0.3 %; EOSINOPHILS # (AUTO) 0.3 10^3/uL (0.0-0.7); EOSINOPHILS % (AUTO) 1.7 %; HGB - HEMOGLOBIN 12.3 g/dL (12.0-16.0); LYMPHOCYTES # (AUTO) 1.4 10^3/uL (1.5-3.5); LYMPHOCYTES % (AUTO) 9.4 %; MEAN CORPUSCULAR HEMOGLOBIN 29.9 pg (27.0-31.0); MEAN CORPUSCULAR HGB CONC 33.4 g/dL (32.0-36.0); MEAN CORPUSCULAR VOLUME 89.5 fL (81.0-99.0); MONOCYTES # (AUTO) 1.3 10^3/uL (0.0-1.0); MONOCYTES % (AUTO) 8.4 %; NEUTROPHILS # (AUTO) 11.9 10^3/uL (1.5-6.6); NEUTROPHILS % (AUTO) 79.8 %; PLT - PLATELET COUNT 264 10^3/uL (130-450); RED BLOOD COUNT 4.11 10^6/uL (4.20-5.40); RED CELL DISTRIBUTION WIDTH 12.4 % (12.0-15.0)
[2020-05-16 04:42] LABS: BUN - BLOOD UREA NITROGEN < 5 mg/dL (6-20); CALCIUM 8.2 mg/dL (8.5-10.3); CARBON DIOXIDE - CO2 24 mmol/L (21-32); CHLORIDE 106 mmol/L (101-111); CREATININE 0.5 mg/dL (0.4-1.0); GLUCOSE 127 mg/dL (70-100); MAGNESIUM 1.8 mg/dL (1.7-2.8); PHOSPHORUS 1.5 mg/dL (2.5-4.6)
[2020-05-16] MEDS: SODIUM CHLORIDE 0.9% 1,000 ML IV SCH ×3 (05:12→13:39)
[2020-05-16] MEDS: ACETAMINOPHEN 325 MG TABLET PO PRN (05:20)
[2020-05-16] MEDS ORDERED: POTASSIUM PHOSPHATE 21 MMOL in SODIUM CHLORIDE 0.9% 250 ML IV ONE (05:53)
[2020-05-16] MEDS ORDERED: SODIUM CHLORIDE 0.9% 250 ML IV ONE (06:28)
[2020-05-16] MEDS: ENOXAPARIN 40 MG/0.4 ML SYRINGE SUBQ SCH (08:01)
[2020-05-16] MEDS: MULTIVITAMIN W/MINERALS TABLET PO SCH (08:01)
[2020-05-16] MEDS: CHOLECALCIFEROL 25 MCG TABLET PO SCH (08:01)
[2020-05-16] MEDS ORDERED: ALPRAZolam 0.25 MG TABLET PO ONE (15:55)
--- NOTE | 2020-05-16 16:40 | DISCHARGE SUMMARY ---
Discharge Summary Admit Date: 05/13/20 Discharge Date: 05/16/20 Discharging Provider: Marlene Bowser ACNP Code Status: Attempt Resuscitation Condition at Discharge: Stable Discharge Disposition: 65 Psych Hosp/Unit DC/Xfer [facility] DIAGNOSES Admission Diagnoses: 1)Abdominal Pain 2) Nausea and Vomiting (self reported) 3) Hyperglycemia (blood glucose 222 on admit) 4) ketosis 5) Polydipsia/polyuria (self reported) 6) Intravascular volume depletion 7) Schizoaffective disorder 8) leukocytosis; mild Discharge Diagnoses with Status of Each Condition: 1)Unspecified Psychosis; transfer to inpatient psychiatry 2) Intravascular volume depletion due to reported fasting ; improved w/ volume resuscitation IV 3) sinus tachycardia 05/15/2009; (and orthostasis) resolved with further volume resuscitation, may have had some response to a 0.125 mg alprazolam dose 4) Abdominal Pain; intermittant/ varying location, no signficant finding on abdominal CT, tolerating PO, no NV during hospitalization, unremarkable exam 5) Nausea and Vomiting (self reported); none during hospitalization 6) Hyperglycemia (blood glucose 222 on admit); resolved w/ IV volume A1C 4.9, FBG 127, one random glucose 173 (? if related to cortisol response w/ pschiatric stress), FSBG 81, 100 at 8a, 11a respectively 05/16/20 7) ketosis; (+ urine ketones on admit) resolved, most c/w starvation ketosis, venous gas ph 7.4 8) Polydipsia/polyuria (self reported); none witnessed here, no corresponding hypo or hypernatremia to suggest SiadH or DI, 9) leukocytosis 21K>>13>>15 with no findings c/w infection; can be manifestation of acute mental health stress; - HPI History of Present Illness: 25 year old female with no previous medical history and not on any current medications presented to the ED with abdominal pain, n/v, polydipsia and polyuria. Per the ED note the pain was 10/10 with gradual onset and radiating diffuselty to the entire abdomen, aching. On my exam she denies radiation, rates it as 8/10 and describes as sharp. Minimizing movement and sleeping help to make it better and stress and movement make it worse. She notes that she "has not slept in over a week" due to a "traumatizing event" but was unwilling to elaborate. She is a vague historian and difficult to elicit details from. She is reporting n/v with nonbilious nonbloody emesis and associated poor appetite and intake. Unable to state what she has been eating recently other th an 2 bananas yesterday that she immediately threw up. Reports that her diet over the last 6 months has "not been good" but unable to describe. Denies anorexia, weight loss and deliberately not eating, though ED note indicates Pt reported a 10 pound weight loss over the past 2 weeks and mother reported Pt has been fasting recently. She reported a 1 week history of polydipsia and polyuria, dizziness and possible changes in taste (she is covid negative). She is unsure of family hx of diabetes other than her mother is "prediabetic" and her uncle "may have" diabetes. ED note indicates strong family history of diabetes. On admission her glucose is 222, WBC 21.1, ketones in the urine, and she was found to have a metabolic acidosis thought 2/2 hyperventilation due to anxiety. Regarding her diet, she alternately reports a weight loss (10 pounds reported to the ED) and denying a weight loss. She also reports she is not sure for how long but she "frequently" fasts, "maybe for 2 or 3 days and this time just might have been too long." Believes she may be drank "too much sugar water, but not on purpose" at her parents' house. "It tasted weird." Reports history of suicidal ideation with no suicide attempts. When asked if she is feeling safe, she reports "I don't know". When asked if she feels like she should hurt herself or others she reports "maybe". Unwilling to elaborate. Reported to nursing a past history of attempts to hurt herself, but was unwilling to elaborate during my interview. Denies having a plan. Has not been diagnosed with depression, anxiety or psychiatric illness but self-reports anxiety and "possible" depression. Per ED note Pt's mother reported Pt had been acting depressed over the last week. On further examination, Pt's affect is labile and alternates between flat, happy, and paranoid. Alternating between making eye contact and wandering gaze around the room in a paranoid fashion. She reports believing that "something is happening" at her parents' house but unable to describe,also mentioned she believes she is being poisoned by her mom. Believes she was "hypnotized" by friends a year and a half ago and this may be why she has not slept in a week, but then states she does not think she was really hypnotized. Stated that her "brain feels like part of it is gone" and "I wish you had scanned my brain before all of this happened", also that "my memories just feel hollow, does that make sense?" Also asking "do you believe me?" when describing these feelings. Describes trying to "work out sentences in my head to help my friend" but then states that her memory issues have caused her to forget what she was going to say to her friend. She is being admitted for observation for concern of euglycemic diabetic ketoacidosis vs starvation ketosis vs unspecified hyperglycemia. She will additionally need a telepsych consult for her schizoaffective signs. - CONSULTS | PROCEDURES Consultations: acute crisis response consult (mental health), patient declined telepsych Procedures: none - HOSPITAL COURSE Hospital Course: #) acute psychosis; unspecified per HPI, pt presented w/ complaints of abdominal symptoms which varied in her description to different providers. NO acute findings on imaging (abdominal CT), or exam. Tolerated oral intake during admission, with unremarkable abdominal exam. Neg urine HCG in ED (Initial leudocytosis most c/w volume contraction and improved to 13K-15 K w/ hydration, no bands. In absence of other causes of leukocytosis, may be related to prolonged and acute psychiatric stress. As per HPI, patient somewhat evasive in responses to history questions, some paranoid responses, / psychiatric overtones to presenting symptoms. After volume depletion was addressed we were able to obtain consult by crisis response service . During and after the interview, patient acutely decompensated , exhibiting more paranoia and delusional statements and calling 911. Refused telepsych consult to help direct medical management with antipsychotic. (She acknowledged considerable relief after a 0.125 mg alprazolam at hs 05/15 and received a single dose 05/16 after crisis response interview, in hopes she would agree to / a telepsych consult. Mother is a licensed therapist and ideally patient would be sent home on antipsychotic, but without a telepsych consult and with patients responding to suggestion of a telepsych consult to help direct us by calling 911, Karolina, crisis response counselor advised/ made plans for transfer to inpatient psych involuntary . Patient accepted at [facility] for involuntary admission (Note patient received (1) 0.125 mg alprazolam ~ 4:30p. 2) Intravascular volume depletion/Dehydraion Urine SG 1.030 on presentation, no concommitant JUAN related to fasting/ anorexia due to acute psychosis Resolved w/ IV volume repletion. #) sinus tachycardia /; resolved clinically nontoxic, afebrile, rate to 130-150 Resolved w/ bolus and additional IVF (which patient was intially suspicious of) EKG sinus tach, sl Biatrial enlargement , but no other significant finding BNP 11 Likely r/t admit volume depletion (noted as dehydration); do not suspect DI; no hypernatremia, polydipsia does not persist tho was admit complaint After 500cc fluid bolus improved but persists w/ HR to 150s when upright Urine SG has improved w/ IVF , normal SG urine Na 140 (denies taking diuretic) TSH normal 1.0 continuing NS at 150/ hr, the 125 / hr (and HR , BP improving; continue overnight, ) (#) Nausea and vomiting/ reported polydipsia/polyuria tolerated oral intake/ no NV during hospitalization No polyuria/polydipisa noted during hospitalization No lab abnormalities or exam c/w either SIADH, DI, DM (#) Hyperglycemia Glucose 222 on admit, not DKA, mild urine ketosis on admit most c/w starvation ketosis, venous pH normal, anion gap resolved w/ IVF, PO intake A1C 4.9, POC blood glucoses well controlled w/ isolated increase to 170, possibly related to chornic stress / cortisol no acute needs, reevaluate after acute psychiatric illness Likely will need antipsychotic agent, if possible use agent without corresponding sideeffect of hyperglycemia # Hypokalemia, Hypophosphatemia due to fasting/ reduced PO intake before admit repleted PO, will discharge w/ 20 mg daily ~ 5 days, and neutrophos bid x 5 days Taking PO so should be self limited - ALLERGIES Allergies/Adverse Reactions: Allergies Allergy/AdvReac Type Severity Reaction Status Date / Time No Known Drug Allergies Allergy Verified 05/13/20 04:20 - MEDICATIONS Home Medications: Ambulatory Orders Medication Instructions Recorded Confirmed Clobetasol 0.05% Oint [Temovate 1 inch TOP PRN PRN 05/14/20 05/14/20 0.05% Oint] Home Medications Other | Comments: Potassium chloride 20 meq PO daily x 5 days Neutraphos 1 packet daily x 5 days - PHYSICAL EXAM AT DISCHARGE General Appearance: positive: Alert, Other (was cooperative earlier, since eval, anxious, calling 911, ) Eyes Bilateral: positive: PERRL (pupils 3-4 mm, ), EOMI ENT: positive: ENT inspection nml Neck: positive: Nml inspection Respiratory: positive: Chest non-tender, No respiratory distress, Breath sounds nml. negative: Wheezes Cardiovascular: positive: Regular rate & rhythm, No murmur, Other (most recent VS 16:07 37.2, HR 84, 114/71, RR 16 95-100% RA) Abdomen: positive: Nml bowel sounds, No distention, Tenderness (with palpation, migratory c/o pain (left today 10, Right 2/), no RBT, no mass), Other (tolerating PO intake) Skin: positive: Warm, Dry, Pallor (mild general pallor). negative: Diaphoresis Extremities: positive: Non-tender. negative: Pedal edema Neurologic/Psychiatric: positive: Oriented x3, Other (oriented to person,place and time but increasingly anxious paranoid during/after Crisis Response Team eval). negative: Mood/affect nml - LABS Result Diagrams: 05/16/20 04:25 05/16/20 04:25 - DIAGNOSTIC IMAGING Diagnostic Imaging Results: Final report reviewed Diagnostic Imaging Results Comments: CT abdomen and Pelvis: Hydropic gallbladder, Mild periportal edema / nonspecific, may be seen in setting of rapid hydration (no other findings suggestive of biliary abnormality, or other acute intraabdominal process) - SEPSIS Current Stage of Sepsis: Ruled out - TIME SPENT Time Spent in Discharge (Minutes): 60 (over 1 hr spent evaluating pt , discussing psych consult, inpatient psych, managing escalating anxiety, coordinating d/c with mental health)
[2020-05-16] MEDS ORDERED: ALPRAZolam 0.25 MG TABLET PO PRN (19:53)
[2020-05-16 20:41] VITALS: BP 121/75
== END 2020-05-16 22:00 ==
LOC: ED 04:10 → MS2 07:28 → EEVIPCON 07:28
PROVIDERS: ADMIT Internal Medicine; ATTEND Nurse Practitioner
DX: F23 Brief psychotic disorder (principal); E87.2 Acidosis; R73.9 Hyperglycemia, unspecified; E86.0 Dehydration; R63.0 Anorexia; Z68.1 Body mass index [BMI] 19.9 or less, adult; R00.0 Tachycardia, unspecified; E88.89 Other specified metabolic disorders; E87.6 Hypokalemia; E83.39 Other disorders of phosphorus metabolism; R10.9 Unspecified abdominal pain; D72.829 Elevated white blood cell count, unspecified; Z20.822 Contact with and (suspected) exposure to COVID-19
CPT/HCPCS: 0202U; 36415; 70450; 74177; 80048; 80053; 80306; 80307; 80320; 80329; 81001; 81003; 81025; 82009; 82306; 82803; 83036; 83605; 83690; 83735; 83880; 84100; 84300; 84443; 85025; 93005; 96365; 96366; 96372; 96375; 96376; 99284; 99285; A9270; G0378; J1650; Q9967; 83930; 87086

== ENCOUNTER 2023-04-10 17:04 | Outpatient (CLI) | payer BC | END 2023-04-10 23:59 | disposition critical access hospital (66) | LOC: EMS 17:04 | DX: Z04.6 Encounter for general psychiatric examination, requested by authority (principal); R44.1 Visual hallucinations; R41.0 Disorientation, unspecified; R45.1 Restlessness and agitation; Z78.1 Physical restraint status | CPT/HCPCS: A0425; A0429 ==

== ENCOUNTER 2023-04-10 17:50 | Emergency (ER) | payer BC ==
--- NOTE | 2023-04-10 17:56 | ED Physician Documentation ---
PD HPI MHE - Stated complaint Stated Complaint: MONIE - History obtained from History obtained from: EMS - Additional information Additional information: She has a history of schizoaffective disorder and has been off of her medications. She is brought into the emergency department by EMS on an MONIE from the [facility] for grave disability. No history is available from the patient because of very tangential speech. PD PAST MEDICAL HISTORY - Past Medical History Cardiovascular: None Respiratory: None Neuro: None Endocrine/Autoimmune: None GI: None FILM COMPOSER: None : None HEENT: None Psych: Anxiety Musculoskeletal: None Derm: Eczema - Past Surgical History Past Surgical History: No - Present Medications Home Medications: Ambulatory Orders Medication Instructions Recorded Confirmed Clobetasol 0.05% Oint [Temovate 1 inch TOP PRN PRN 05/14/20 05/14/20 0.05% Oint] - Allergies Allergies/Adverse Reactions: Allergies Allergy/AdvReac Type Severity Reaction Status Date / Time No Known Drug Allergies Allergy Verified 05/13/20 04:20 - Social History Does the pt smoke?: No Smoking Status: Never smoker Does the pt drink ETOH?: Yes Does the pt have substance abuse?: No - POLST Patient has POLST: No PD ED PE NORMAL - Vitals Vital signs reviewed: Yes - General General: Other (Very tangential speech to the point of being unable to take any specific history.) - HEENT HEENT: PERRL - Neck Neck: Supple, no meningeal sign - Cardiac Cardiac: RRR, No murmur - Respiratory Respiratory: No respiratory distress, Clear bilaterally - Abdomen Abdomen: Non tender - Derm Derm: Normal color, Warm and dry - Extremities Extremities: No edema, No calf tenderness / cord - Neuro Eye Opening: Spontaneous Results - Vitals Vitals: Vital Signs - 24 hr 04/10/23 17:56 Temperature 36.4 C L Heart Rate 84 Respiratory 15 Rate Blood Pressure 117/76 O2 Saturation 100 Oxygen O2 Source Room air - Labs Labs: Laboratory Tests 04/10/23 04/10/23 04/10/23 18:04 18:10 18:10 WBC 5.1 RBC 5.06 Hgb 14.5 Hct 43.1 MCV 85.2 MCH 28.7 MCHC 33.6 RDW 12.5 Plt Count 296 MPV 9.6 Neut # (Auto) 2.8 Lymph # (Auto) 1.7 Bowman # (Auto) 0.5 Eos # (Auto) 0.1 Baso # (Auto) 0.0 Absolute Nucleated RBC 0.00 Nucleated RBC % 0.0 Sodium 136 Potassium 3.9 Chloride 103 Carbon Dioxide 23 Anion Gap 10.0 BUN 7 Creatinine 0.7 Estimated GFR (MDRD) 98 Glucose 81 Calcium 9.4 Magnesium 1.8 Total Bilirubin 1.0 AST 15 ALT 16 Alkaline Phosphatase 37 L Total Creatine Kinase 46 Total Protein 7.3 Albumin 4.6 Globulin 2.7 Albumin/Globulin Ratio 1.7 Lipase 16 TSH 1.09 Serum HCG, Qual Urine Color Urine Clarity Urine pH Ur Specific [place] Urine Protein Urine Glucose (UA) Urine Ketones Urine Occult Blood Urine Nitrite Urine Bilirubin Urine Urobilinogen Ur Leukocyte Esterase Ur Microscopic Review Urine Culture Comments Salicylates < 1.5 Urine Opiates Screen Ur Buprenorphine Scrn Ur Oxycodone Screen Urine Methadone Screen Acetaminophen 0.2 Ur Barbiturates Screen Ur Tricyclics Screen Ur Phencyclidine Scrn Ur Amphetamine Screen U Methamphetamines Scrn U Benzodiazepines Scrn Urine Cocaine Screen U Cannabinoids Screen Ur Drug Screen Comment Ethyl Alcohol < 10.0 SARS-CoV-2 (PCR) NOT DETECTED 04/10/23 04/10/23 18:10 18:26 WBC RBC Hgb Hct MCV MCH MCHC RDW Plt Count MPV Neut # (Auto) Lymph # (Auto) Bowman # (Auto) Eos # (Auto) Baso # (Auto) Absolute Nucleated RBC Nucleated RBC % Sodium Potassium Chloride Carbon Dioxide Anion Gap BUN Creatinine Estimated GFR (MDRD) Glucose Calcium Magnesium Total Bilirubin AST ALT Alkaline Phosphatase Total Creatine Kinase Total Protein Albumin Globulin Albumin/Globulin Ratio Lipase TSH Serum HCG, Qual NEGATIVE Urine Color YELLOW Urine Clarity CLEAR Urine pH 6.5 Ur Specific [place] 1.010 Urine Protein NEGATIVE Urine Glucose (UA) NEGATIVE Urine Ketones 40 H Urine Occult Blood NEGATIVE Urine Nitrite NEGATIVE Urine Bilirubin NEGATIVE Urine Urobilinogen 0.2 (NORMAL) Ur Leukocyte Esterase NEGATIVE Ur Microscopic Review NOT INDICATED Urine Culture Comments NOT INDICATED Salicylates Urine Opiates Screen NEGATIVE Ur Buprenorphine Scrn NEGATIVE Ur Oxycodone Screen NEGATIVE Urine Methadone Screen NEGATIVE Acetaminophen Ur Barbiturates Screen NEGATIVE Ur Tricyclics Screen NEGATIVE Ur Phencyclidine Scrn NEGATIVE Ur Amphetamine Screen NEGATIVE U Methamphetamines Scrn NEGATIVE U Benzodiazepines Scrn NEGATIVE Urine Cocaine Screen NEGATIVE U Cannabinoids Screen NEGATIVE Ur Drug Screen Comment CUTOFF CONC BELOW: Ethyl Alcohol SARS-CoV-2 (PCR) PD Medical Decision Making - ED course ED course: 28-year-old woman presents already on an MONIE from the [facility] for grave disability. She appears to be decompensated here. Routine screening labs were done and has normal CBC, CMP, urine, and negative and toxicological screening. She was accepted by a [facility] and cobras are completed. Departure - Departure Disposition: 65 Psych Hosp/Unit DC/Xfer Clinical Impression: Schizoaffective disorder Qualifiers: Schizoaffective disorder type: unspecified Qualified Code(s): F25.9 - Schizoaffective disorder, unspecified Condition: Stable
[2023-04-10] MEDS ORDERED: LORazepam 1 MG TABLET PO STA (18:07)
[2023-04-10 18:15] LABS: BASOPHILS % (AUTO) 0.6 %; EOSINOPHILS # (AUTO) 0.1 10^3/uL (0.0-0.7); HCT - HEMATOCRIT 43.1 % (37.0-47.0); HGB - HEMOGLOBIN 14.5 g/dL (12.0-16.0); LYMPHOCYTES # (AUTO) 1.7 10^3/uL (1.5-3.5); LYMPHOCYTES % (AUTO) 33.4 %; MEAN CORPUSCULAR HEMOGLOBIN 28.7 pg (27.0-31.0); MEAN CORPUSCULAR HGB CONC 33.6 g/dL (32.0-36.0); MEAN CORPUSCULAR VOLUME 85.2 fL (81.0-99.0); MEAN PLATELET VOLUME 9.6 fL (7.9-10.8); MONOCYTES # (AUTO) 0.5 10^3/uL (0.0-1.0); NEUTROPHILS # (AUTO) 2.8 10^3/uL (1.5-6.6); NEUTROPHILS % (AUTO) 53.8 %; PLT - PLATELET COUNT 296 10^3/uL (130-450); RED BLOOD COUNT 5.06 10^6/uL (4.20-5.40); RED CELL DISTRIBUTION WIDTH 12.5 % (12.0-15.0); WHITE BLOOD COUNT 5.1 x10^3/uL (4.8-10.8)
[2023-04-10 18:31] LABS: ACETAMINOPHEN 0.2 ug/mL; ALBUMIN 4.6 g/dL (3.2-5.5); ALBUMIN/GLOBULIN RATIO 1.7 (1.0-2.2); ALKALINE PHOSPHATASE 37 IU/L (42-121); ALT ALANINE AMINOTRANSFERASE 16 IU/L (10-60); AST ASPARTATE AMINOTRANSFERASE 15 IU/L (10-42); BUN - BLOOD UREA NITROGEN 7 mg/dL (6-20); CALCIUM 9.4 mg/dL (8.5-10.3); CARBON DIOXIDE - CO2 23 mmol/L (21-32); CHLORIDE 103 mmol/L (101-111); CK- CREATINE KINASE 46 IU/L (30-223); CREATININE 0.7 mg/dL (0.6-1.3); ETOH - ETHANOL < 10.0 mg/dL; GFR - MDRD 98 (>89); GLUCOSE 81 mg/dL (74-104); LIPASE 16 U/L (11-82); MAGNESIUM 1.8 mg/dL (1.7-2.3); POTASSIUM 3.9 mmol/L (3.5-4.5); SODIUM 136 mmol/L (135-145); TOTAL PROTEIN 7.3 g/dL (6.4-8.9)
[2023-04-10 18:36] LABS: HCG,QUALITATIVE BLOOD NEGATIVE
[2023-04-10 18:44] LABS: THYROID STIMULATING HORMONE 1.09 uIU/mL (0.34-5.60)
[2023-04-10 18:50] LABS: SALICYLATE < 1.5 mg/dL
[2023-04-10 18:54] LABS: BILIRUBIN,URINE NEGATIVE (NEGATIVE); GLUCOSE, URINE (UA) NEGATIVE (NEGATIVE); KETONES,URINE (UA) 40 mg/dL (NEGATIVE); LEUKOCYTE ESTERASE, URINE NEGATIVE (NEGATIVE); NITRITE,URINE NEGATIVE (NEGATIVE); OCCULT BLOOD,URINE NEGATIVE (NEGATIVE); PH,URINE 6.5 PH (5.0-7.5); PROTEIN,URINE NEGATIVE (NEGATIVE); UROBILINOGEN,URINE 0.2 (NORMAL) E.U./dL (NORMAL)
[2023-04-10 18:56] LABS: CLARITY,URINE CLEAR (CLEAR)
[2023-04-10 19:06] LABS: AMPHETAMINE SCREEN,URINE NEGATIVE (NEGATIVE); BARBITURATE SCREEN,UR NEGATIVE (NEGATIVE); BENZODIAZEPINES SCREEN, URINE NEGATIVE (NEGATIVE); COCAINE SCREEN URINE NEGATIVE (NEGATIVE); METHADONE SCREEN, URINE NEGATIVE (NEGATIVE); METHAMPHETAMINES SCREEN, URINE NEGATIVE (NEGATIVE); OPIATE SCREEN, URINE NEGATIVE (NEGATIVE); THC CANNABINOID SCREEN, URINE NEGATIVE (NEGATIVE); TRICYCLIC ANTIDEPRESSANT,URINE NEGATIVE (NEGATIVE)
[2023-04-10 19:07] LABS: BUPRENORPHINE SCREEN, URINE NEGATIVE (NEGATIVE); OXYCODONE SCREEN, URINE NEGATIVE (NEGATIVE)
[2023-04-11] MEDS ORDERED: LORazepam 1 MG TABLET PO STA (10:02)
--- NOTE | 2023-04-11 10:05 | ED Physician Documentation ---
ED Addendum - Addendum Addendum: 04/11/23 10:02 The patient had been calm and sleeping in had some breakfast when awakened this morning after change of shift. She was reapprised on the plan for transfer. She was okay at that time. The [place] ambulance arrived to take patient on transfer. At that point she could quickly anxious and agitated got up out of bed despite verbal consoling by nursing and redirecting verbally. We offered some medication and food. However she got up and ran from the bed out the back door. Jacy Montoya was called. They were several people around her at the time but we did not try any physical restraining as she actually ran quite quickly and unexpectedly. 's office was called. One of the nurses was out keeping an eye on her to ensure no other activities. She will be brought back. Presume we would be able to give some oral medication to help with her anxiety and re sume the transfer. 04/11/23 10:18 The patient was kept on site by one of the ER nurses in the [facility] encountered the patient and walked her back to the ER. She was still anxious but cooperative now at this time. She was seen throughout the time to not do any self-harm and no ingestions. At this point I do not feel any retesting is needed. She is cooperative and willing to go on transfer at this point. We offered lorazepam or Benadryl or hydroxyzine. She accepted Benadryl p.o. to help with her anxiety for the ride. The patient will be transferred now in stable condition. Disposition: Transfer to psychiatric facility in stable condition Diagnoses: 1. Schizoaffective disorder 2. Anxiety and agitation 3. Poor self-care
[2023-04-11] MEDS ORDERED: diphenhydrAMINE 25 MG CAPSULE PO STA (10:14)
[2023-04-11 11:09] VITALS: O2SAT 100
[2023-04-11 11:17] VITALS: BP 102/56
== END 2023-04-11 11:19 ==
LOC: EDUNIT# → ED 17:50
DX: F25.9 Schizoaffective disorder, unspecified (principal); F41.9 Anxiety disorder, unspecified; R45.1 Restlessness and agitation
CPT/HCPCS: 36415; 80053; 80306; 80307; 80320; 80329; 81003; 82550; 83690; 83735; 84443; 84703; 85025; 87635; 99285; J8499; 81001; 87086